=== PATIENT | male | born 1970 | race Two or more races ===

== ENCOUNTER 2020-09-21 13:09 | Emergency (ER) | payer SELFPAY ==
[~2020-09-21] VITALS: Ht 188 cm; Wt 93.9 kg
[2020-09-21] MEDS ORDERED: KETOROLAC TROMETH 60MG/2ML VIAL IM ONE (14:00)
[2020-09-21 14:30] VITALS: BP 175/86
== END 2020-09-21 15:01 | disposition home or self-care (01) ==
LOC: ER 13:09
DX: M54.16 Radiculopathy, lumbar region (principal); F17.210 Nicotine dependence, cigarettes, uncomplicated
CPT/HCPCS: 96372; 99283; J1885